=== PATIENT | female | born 1970 | race Hispanic/Latino ===

== ENCOUNTER 2022-04-06 20:55 | Emergency (ER) | payer OTHER, SELFPAY ==
[~2022-04-06] VITALS: Ht 162.6 cm; Wt 66.2 kg
[2022-04-06 21:30] LABS: APPEARANCE,URINE CLEAR (CLEAR); BILIRUBIN,URINE NEGATIVE (NEGATIVE); COLOR,URINE YELLOW (YELLOW); GLUCOSE, URINE (UA) NEGATIVE (NEGATIVE); KETONES,URINE NEGATIVE (NEGATIVE); LEUKOCYTE ESTERASE ,URINE NEGATIVE (NEGATIVE); NITRATE,URINE NEGATIVE (NEGATIVE); OCCULT BLOOD,URINE SMALL (NEGATIVE); PH,URINE 6.5 (5.0-8.0); PROTEIN,URINE NEGATIVE (NEGATIVE); UROBILINOGEN,URINE 0.2 mg/dL (0.2-1.0)
[2022-04-06] MEDS ORDERED: ONDANSETRON 4MG TABLET PO ONE (21:30)
[2022-04-06] MEDS ORDERED: DICYCLOMINE HCL 10 MG/5 ML ML PO ONE (21:30)
[2022-04-06] MEDS ORDERED: LIDOCAINE HCL 2% VISCOUS 15 ML UDCUP PO ONE (21:30)
[2022-04-06] MEDS ORDERED: MAG/ALUM/SIMETH 30 ML UDCUP PO ONE (21:30)
[2022-04-06] MEDS ORDERED: FAMOTIDINE 20MG TAB PO ONE (21:30)
[2022-04-06 21:32] LABS: BASOPHILS % (AUTO) 0.5 % (0.0-5.0); EOSINOPHILS % (AUTO) 1.7 % (0.0-8.0); HEMATOCRIT 38.4 % (36-48); LYMPHOCYTES % (AUTO) 22.7 % (21.0-51.0); MEAN CORPUSCULAR HEMOGLOBIN 29.3 pg (27.0-33.0); MEAN CORPUSCULAR HGB CONC 33.1 g/dL (32.0-36.0); MEAN CORPUSCULAR VOLUME 88.5 fL (79-99); MONOCYTES % (AUTO) 6.5 % (3.0-13.0); NEUTROPHILS % (AUTO) 68.3 % (40.0-77.0); PLATELET COUNT (AUTO) 96 K/uL (130-400); RED BLOOD CELL COUNT(AUTO) 4.34 MIL/uL (4.00-5.50); RED CELL DISTRIBUTION WIDTH 12.9 % (11.0-15.5); WHITE BLOOD COUNT (AUTO) 7.4 K/uL (4.8-10.8)
[2022-04-06 21:40] LABS: BACTERIA,URINE Few /HPF (None Seen); SQUAMOUS EPITHELIAL CELL,UR Moderate /HPF (0-2)
[2022-04-06 21:41] LABS: POTASSIUM 3.8 mmol/L (3.5-5.1)
[2022-04-06 21:45] LABS: TOTAL PROTEIN, SERUM 7.8 g/dL (6.0-8.3)
[2022-04-06 21:49] VITALS: BP 124/67
[2022-04-06] MEDS ORDERED: FAMO-136 PO (21:59)
[2022-04-06] MEDS ORDERED: DICY20TA2 PO (21:59)
== END 2022-04-06 22:12 | disposition home or self-care (01) ==
LOC: EDH 20:55
DX: K29.70 Gastritis, unspecified, without bleeding (principal); I10 Essential (primary) hypertension; K21.9 Gastro-esophageal reflux disease without esophagitis; Z88.6 Allergy status to analgesic agent; Z90.49 Acquired absence of other specified parts of digestive tract
CPT/HCPCS: 99284; 71045; 84484; 80053; 83690; 85025; 81001; 36415; Q0162

== ENCOUNTER 2024-05-14 08:10 | Emergency (ER) | payer BC ==
[~2024-05-14] VITALS: Ht 162.6 cm; Wt 67.1 kg
[~2024-05-14 08:10] MED LIST: DICY20TA2 PO; FAMO-136 PO
[2024-05-14] MEDS: FLUORESCEIN SODIUM 1 STRIP STRIP ONE (09:04)
[2024-05-14] MEDS: NA BORATE/BORIC AC/H2O/NACL 120 ML OPHTH IRRIG SOLN ONE (09:05)
[2024-05-14] MEDS: FLUORESCEIN SODIUM 1 STRIP STRIP OP SCH (09:05)
[2024-05-14] MEDS: NA BORATE/BORIC AC/H2O/NACL 120 ML OPHTH IRRIG SOLN OP SCH (09:05)
[2024-05-14 09:14] VITALS: BP 145/71; PULSE 70; RESP 16; TEMP 97.5; O2SAT 100
== END 2024-05-14 09:56 | disposition home or self-care (01) ==
LOC: EDH 08:10
DX: H11.31 Conjunctival hemorrhage, right eye (principal); K21.9 Gastro-esophageal reflux disease without esophagitis; I10 Essential (primary) hypertension; Z88.6 Allergy status to analgesic agent; Z88.8 Allergy status to other drugs, medicaments and biological substances; Z79.899 Other long term (current) drug therapy; Z90.49 Acquired absence of other specified parts of digestive tract